=== PATIENT | female | born 1960 | race Caucasian/White ===

== ENCOUNTER 2022-07-12 21:08 | Emergency (ER) | payer OTHER ==
[2022-07-12] MEDS ORDERED: Acetaminophen/oxyCODONE 325-5 MG Tab PO ONE ×3 (21:09→22:53)
[2022-07-12] MEDS ORDERED: Cyclobenzaprine 10 MG Tab PO ONE ×3 (21:09→22:53)
[2022-07-12] MEDS ORDERED: Iopamidol 612 MG/ML 100 ML Bottle IVPUSH ONE (21:19)
[2022-07-12] MEDS ORDERED: Sodium Chloride 0.9% 10 ML Syringe FLUSH PRN ×2 (21:19)
[2022-07-12] MEDS ORDERED: Ondansetron 4 MG Tab.DIS PO ONE ×2 (22:00→23:04)
[2022-07-12 22:12] LABS: PTT,PARTIAL THROMBOPLSTIN TIME 19.2 SEC (22.0-34.0)
[2022-07-12 22:16] LABS: ANION GAP 13.4 mEq/L (7-13); CHLORIDE,CL 107 mmol/L (98-107); ESTIMATED GFR 64 mL/min (>=60); SODIUM,NA 144 mmol/L (136-145)
[2022-07-12] MEDS ORDERED: Acetaminophen/oxyCODONE 325-5 MG Tab ONE (23:03)
[2022-07-12] MEDS ORDERED: Cyclobenzaprine 10 MG Tab ONE (23:03)
== END 2022-07-12 23:20 | disposition home or self-care (01) ==
LOC: DL.ED 21:08
DX: S22.22XA Fracture of body of sternum, initial encounter for closed fracture (principal); V40.6XXA Car passenger injured in collision with pedestrian or animal in traffic accident, initial encounter; Y92.410 Unspecified street and highway as the place of occurrence of the external cause
CPT/HCPCS: 36415; 71250; 72125; 74176; 80053; 84484; 85025; 85610; 85730; 99284; A9270-GY

== ENCOUNTER 2025-01-02 05:51 | Day surgery (SDC) | payer OTHER ==
[2025-01-02] MEDS ORDERED: Midazolam 1 MG/ML 2 ML SDV IV ONE (06:19)
[2025-01-02] MEDS ORDERED: Midazolam 1 MG/ML 2 ML SDV ONE (06:19)
[2025-01-02] MEDS ORDERED: fentaNYL 100 MCG/2 ML SDV IV ONE (06:19)
[2025-01-02] MEDS ORDERED: fentaNYL 100 MCG/2 ML SDV ONE (06:19)
[2025-01-02] MEDS: Dextrose 5%-0.45% NaCl 1,000 ML IV SCH (06:19)
[2025-01-02] MEDS: fentaNYL 100 MCG/2 ML SDV IV ONE ×2 (07:08)
[2025-01-02] MEDS: Midazolam 1 MG/ML 2 ML SDV IV ONE ×2 (07:09)
== END 2025-01-02 09:10 | disposition home or self-care (01) ==
LOC: DL.ENDO 05:51
PROVIDERS: ATTEND Internal Medicine Gastroenterology
DX: R10.9 Unspecified abdominal pain (principal)
CPT/HCPCS: 43239; J2250; J3010